=== PATIENT | male | born 1970 | race Two or more races ===

== ENCOUNTER 2025-03-25 12:51 | Inpatient (IN) | payer OTHER ==
[~2025-03-25] VITALS: Ht 167.6 cm; Wt 83.9 kg
--- NOTE | 2025-03-25 13:51 | NUR ---
PACIENTE MASCULINO, S/V EN PARAMETROS NORMALES, C/C DOLOR ABDOMINAL, SE UBICA EN PASILLO PARA SER EVALUADO POR MD.
[2025-03-25] MEDS ORDERED: BARIUM SULFATE 450 ML ORAL.SUSP PO ONE (15:20)
[2025-03-25 15:38] LABS: BASO % 0.1 % (0.1-1.2); EOS # 0.02 (0.04-0.54); EOS % 0.1 % (0.7-7.0); LYMPH # 1.16 (1.18-3.74); LYMPH % 7.5 % (19.3-53.1); MEAN PLATELET VOLUME 10.00 fl (9.4-12.4); MONO # 1.14 (0.24-0.82); MONO % 7.4 % (4.7-12.5); NEUT # 13.07 (1.56-6.13); NEUT % 84.4 % (34.0-71.1); RED CELL DISTRIBUTION WIDTH 12.2 % (11.6-14.4)
--- NOTE | 2025-03-25 15:54 | NUR ---
RN.SKY ORIENTA A PTE SOBRE TX MEDICO ORDENADO POR . REALIZA ISMAEL DE MUESTRAS DE LAB [facility] ORDEN MEDICA Y BAJO MEDIDAS ASEPTICAS. VENOPUNCION PATENTE AUSTYN DE EDEMA Y ERITEMA EN H/L. SE ENTREGA ENVASE DE UA Y CONTRASTES PO.
[2025-03-25 16:07] LABS: BUN CREA RATIO 25.0 (7.0-25.0); CREATININE SERUM 0.91 mg/dL (0.70-1.30); GFR 86.18; GLUCOSE FASTING 143.0 mg/dL (65-100); OSMOLALITY SERUM 291.0 MOSM/KG (275-295)
[2025-03-25 17:38] LABS: URINE APPEARANCE Clear; URINE BILIRRUBIN Negative (NEGATIVE); URINE BLOOD Negative; URINE COLOR Yellow; URINE GLUCOSE Negative (NEGATIVE); URINE KETONE Negative (NEGATIVE); URINE LEUKOCYTE Negative; URINE NITRATE Negative; URINE PROTEIN Negative (NEGATIVE); URINE UROBILINOGEN 0.2 E.U./dl
[2025-03-25 17:47] LABS: URINE RBC 1.4 uL (0.0-20.8)
[2025-03-25 17:48] LABS: URINE BACTERIA 2.3 uL (0.0-1933); URINE CAST 0.00 uL (0.0-1.40); URINE EPITHELIAL CELLS 1.2 uL (0.0-38.8); URINE WBC 1.6 uL (0.0-23.2)
[2025-03-25] MEDS ORDERED: 0.9 % SODIUM CHLORIDE 1,000 ML IV ONE (20:45)
[2025-03-25] MEDS ORDERED: MORPHINE SULFATE 4 MG/ML VIAL IV ONE (20:45)
[2025-03-25] MEDS ORDERED: FAMOtidine 10 MG/ML (4ML VIAL) IV ONE (20:45)
[2025-03-25] MEDS ORDERED: PIPERACILLIN/TAZOBACTAM SODIUM 3.375 GM VIAL IV ONE ×2 (20:45→20:47)
[2025-03-25] MEDS ORDERED: FAMOTIDINE/PF 20 MG/2 ML VIAL ONE (20:47)
[2025-03-25] MEDS ORDERED: KETOROLAC TROMETHAMINE 30 MG VIAL ONE (20:55)
[2025-03-25] MEDS ORDERED: KETOROLAC TROMETHAMINE 30 MG VIAL IV ONE (21:00)
[2025-03-25] MEDS ORDERED: PIPERACILLIN/TAZOBACTAM SODIUM 4.5 GM in 0.9 % SODIUM CHLORIDE 100 ML IV SCH (21:37)
[2025-03-25] MEDS ORDERED: ENOXAPARIN SODIUM 40 MG/0.4 ML SYRINGE SUBCUTANEO SCH (21:38)
[2025-03-25] MEDS ORDERED: PANTOPRAZOLE SODIUM 40 MG in 0.9 % SODIUM CHLORIDE 8 ML IV PUSH SCH (21:38)
[2025-03-25] MEDS ORDERED: 0.9 % SODIUM CHLORIDE 1,000 ML IV SCH (21:45)
[2025-03-25] MEDS ORDERED: MORPHINE SULFATE 2 MG/ML CARTRIDGE IV PRN (21:45)
[2025-03-25] MEDS ORDERED: IRBESARTAN 300 MG TABLET PO SCH (21:59)
[2025-03-25] MEDS ORDERED: TAMSULOSIN HCL 0.4 MG CAP PO SCH (22:13)
[2025-03-25 22:22] VITALS: BP 175/81; O2SAT 97
[2025-03-25 22:25] VITALS: BP 175/81
[2025-03-25 22:31] LABS: INR 1.04
[2025-03-25 23:30] LABS: COVID-19 AG NEGATIVE (NEGATIVE)
[2025-03-26 02:30] VITALS: BP 162/88; O2SAT 96
[2025-03-26] MEDS ORDERED: LEVOTHYROXINE SODIUM 100 MCG TABLET PO SCH (06:00)
[2025-03-26 08:00] VITALS: BP 180/100; O2SAT 98
[2025-03-26 10:51] VITALS: BP 167/97
[2025-03-26 15:52] LABS: BUN CREA RATIO 19.0 (7.0-25.0); CHOL HDL RATIO 2.6 (0-5.0); CREATININE SERUM 0.8 mg/dL (0.70-1.30); GFR 100.0; GLUCOSE FASTING 97.0 mg/dL (65-100); HDL 53.0 mg/dl (40-60); LDL 62.0 mg/dl (0-130); OSMOLALITY SERUM 282.0 MOSM/KG (275-295); VLDL 25.0 (0-39)
[2025-03-26 16:07] VITALS: BP 152/93; O2SAT 95
[2025-03-26] MEDS ORDERED: AA 4.25%/CAL/LYTES/DEXT 5% 1,000 ML PERIFERAL SCH (17:00)
[2025-03-26] MEDS ORDERED: FAT EMULSIONS 250 ML IV SCH (21:00)
[2025-03-27 00:30] VITALS: BP 134/77; O2SAT 100
[2025-03-27 08:00] VITALS: BP 166/92; O2SAT 97
[2025-03-27] MEDS ORDERED: TRAMADOL HCL 50 MG TABLET PO PRN (14:00)
[2025-03-27] MEDS ORDERED: ACETAMINOPHEN 500 MG GEL..CAP PO PRN (14:45)
[2025-03-27 17:47] VITALS: BP 159/90; O2SAT 97
[2025-03-28 01:01] VITALS: BP 145/83; O2SAT 97
[2025-03-28 08:38] VITALS: BP 164/95; O2SAT 96
[2025-03-28] MEDS ORDERED: ORPHENADRINE CITRATE 30 MG/ML AMPUL IV SCH (09:00)
[2025-03-28 16:00] VITALS: BP 154/88; O2SAT 96
[2025-03-29 00:41] VITALS: BP 138/74; O2SAT 99
[2025-03-29 08:00] VITALS: BP 154/95; O2SAT 97
[2025-03-29] MEDS ORDERED: DIATRIZOATE MEGLUMINE, SODIUM 30 ML BOTTLE PO NR (10:45)
[2025-03-29] MEDS ORDERED: ENALAPRILAT DIHYDRATE 1.25 MG/ML VIAL IV PRN (12:45)
[2025-03-30 01:59] VITALS: BP 150/89; O2SAT 97
[2025-03-30 06:17] LABS: BASO % 0.1 % (0.1-1.2); EOS # 0.30 (0.04-0.54); EOS % 3.8 % (0.7-7.0); LYMPH # 1.23 (1.18-3.74); LYMPH % 15.5 % (19.3-53.1); MEAN PLATELET VOLUME 10.30 fl (9.4-12.4); MONO # 0.91 (0.24-0.82); MONO % 11.5 % (4.7-12.5); NEUT # 5.44 (1.56-6.13); NEUT % 68.6 % (34.0-71.1); RED CELL DISTRIBUTION WIDTH 11.7 % (11.6-14.4)
[2025-03-30 07:19] LABS: BUN CREA RATIO 20.0 (7.0-25.0); CREATININE SERUM 0.96 mg/dL (0.70-1.30); GFR 81.02; GLUCOSE FASTING 85.0 mg/dL (65-100); OSMOLALITY SERUM 283.0 MOSM/KG (275-295)
[2025-03-30 08:00] VITALS: BP 145/90; O2SAT 97
[2025-03-30 17:16] VITALS: BP 155/85; O2SAT 99
[2025-03-31 00:57] VITALS: BP 136/83; O2SAT 98
[2025-03-31 08:00] VITALS: BP 145/79; O2SAT 97
[2025-03-31 16:00] VITALS: BP 144/89; O2SAT 96
[2025-04-01 02:22] VITALS: BP 139/78; O2SAT 99
[2025-04-01 08:21] VITALS: BP 139/76; O2SAT 98
[2025-04-01 16:23] VITALS: BP 143/88; O2SAT 99
== END 2025-04-01 16:38 | disposition home or self-care (01) | DRG 392 ==
LOC: ER 13:17 → SURH 21:41
PROVIDERS: Emergency Medicine; General Practice; ADMIT Internal Medicine; ATTEND Internal Medicine
PROC: BW21ZZZ Computerized Tomography (CT Scan) of Abdomen and Pelvis (ICD-10-PCS; principal; 2025-03-25)
PROC: BW21YZZ Computerized Tomography (CT Scan) of Abdomen and Pelvis using Other Contrast (ICD-10-PCS; 2025-03-29)
DX: K57.80 Diverticulitis of intestine, part unspecified, with perforation and abscess without bleeding (principal); I10 Essential (primary) hypertension; E03.8 Other specified hypothyroidism